=== PATIENT | male | born 1985 | race Caucasian/White ===

== ENCOUNTER 2016-11-14 12:47 | Emergency (ER) | payer BC ==
[~2016-11-14] VITALS: Ht 182.9 cm; Wt 85.8 kg
[2016-11-14 13:10] VITALS: BP 110/51
--- NOTE | 2016-11-14 14:37 | NUR ---
Patient ambulated to [facility] to be evaluated as fast track by JITENDRA Razo. RN evaluating patient.
--- NOTE | 2016-11-14 14:38 | NUR ---
PT FELL FROM STAIRS AT HOME,INJURED RIGHT GREAT TOE W/ MILD DISCOLORATION, TENDER <2 SEC CAP REFILL;DENIES NUMBNESS/TINGLING SENSATION ON RT FOOT;DENIES ANY OTHER INJURY; DENIES N/V/D; SKIN IS PINK/WARM/DRY; AAOX4 WITH EVEN AND STEADY GAIT; LUNGS CLEAR BL; HR EVEN AND REGULAR; PT DENIES ANY FEVER, CP, SOB, OR COUGH AT THIS TIME; PATIENT STATES PAIN OF 9/10 AT THIS TIME;PATIENT POSITIONED FOR COMFORT; HOB ELEVATED; BEDRAILS UP X2; BED DOWN. PHOTOVOLTAIC INSTALLATION TECHNICIAN WILL BE NOTIFIED.
[2016-11-14 15:39] VITALS: BP 114/68
== END 2016-11-14 15:38 | disposition home or self-care (01) ==
LOC: MED 12:57
DX: S92.415A Nondisplaced fracture of proximal phalanx of left great toe, initial encounter for closed fracture (principal); W10.9XXA Fall (on) (from) unspecified stairs and steps, initial encounter; Y93.89 Activity, other specified; Y92.89 Other specified places as the place of occurrence of the external cause; Y99.8 Other external cause status
CPT/HCPCS: 73660; 99284